=== PATIENT | female | born 1970 | race Two or more races ===

== ENCOUNTER 2020-09-20 06:32 | Day surgery (SDC) | payer OTHER | END 2020-09-20 19:30 | disposition home or self-care (01) | LOC: CIR.AMB 06:32 | PROVIDERS: ATTEND Surgery | DX: D05.11 Intraductal carcinoma in situ of right breast (principal); C77.3 Secondary and unspecified malignant neoplasm of axilla and upper limb lymph nodes; Z90.12 Acquired absence of left breast and nipple; Z20.822 Contact with and (suspected) exposure to COVID-19 | CPT/HCPCS: 19357; C1789; 19328; 19307; 38525; 38792 ==

== ENCOUNTER 2022-10-09 05:46 | Day surgery (SDC) | payer OTHER | END 2022-10-09 14:25 | disposition home or self-care (01) | LOC: CIR.AMB 05:46 | PROVIDERS: ATTEND Plastic Surgery | DX: C50.911 Malignant neoplasm of unspecified site of right female breast (principal); T85.44XA Capsular contracture of breast implant, initial encounter; Z90.11 Acquired absence of right breast and nipple; Z20.822 Contact with and (suspected) exposure to COVID-19 ==

== ENCOUNTER 2023-06-04 05:10 | Day surgery (SDC) | payer OTHER ==
[2023-06-02 10:25] LABS: HEMATOCRIT 41.3 % (36.0-45.00); HEMOGLOBIN 13.9 g/dL (12.0-15.00); MEAN CELL VOLUME 87.6 fL (80.00-100.00); MEAN CORPUSCULAR HEMOGLOBIN 29.5 pg (27.00-32.0); MEAN CORPUSCULAR HGB CONC 33.6 g/dl (32.0-36.0); PLATELET COUNT 178 K/uL (150-450); RED BLOOD COUNT 4.72 M/uL (4.00-6.00); RED CELL DISTRIBUTION WIDTH 13.3 % (11.5-14.5)
[2023-06-02 10:26] LABS: URINE APPEARANCE Clear; URINE BILIRRUBIN Negative (NEGATIVE); URINE BLOOD Negative; URINE COLOR Yellow; URINE GLUCOSE Negative (NEGATIVE); URINE LEUKOCYTE Negative; URINE NITRATE Negative; URINE PROTEIN Negative (NEGATIVE); URINE UROBILINOGEN 0.2 E.U./dl
[2023-06-02 10:31] LABS: URINE EPITHELIAL CELLS 2.7 uL (0.0-38.8); URINE RBC 7.3 uL (0.0-20.8); URINE WBC 2.6 uL (0.0-23.2)
[2023-06-02 10:36] LABS: URINE BACTERIA 3.7 uL (0.0-1933)
[2023-06-02 10:46] LABS: PARTIAL THROMBOPLASTIN TIME 29.3 SECONDS (22.0-34.0); PROTHROMBIN TIME 10.5 SECONDS (9.0-11.5)
[2023-06-02 10:47] LABS: CALCIUM 9.4 mg/dL (8.5-10.1); CREATININE SERUM 0.6 mg/dL (0.55-1.02); GFR 104.98; POTASSIUM 3.99 mEq/L (3.5-5.1)
[2023-06-04] MEDS ORDERED: CLINDAMYCIN PHOSPHATE 150 MG/ML (900mg) ONE (06:03)
[2023-06-04] MEDS ORDERED: CEFAZOLIN SODIUM 1,000 MG VIAL ONE (07:21)
[2023-06-04] MEDS ORDERED: POVIDONE-IODINE SCRUB 118 ML BOTT TOP ONE ×2 (07:22→09:30)
[2023-06-04] MEDS ORDERED: POVIDONE-IODINE 118 ML BOTT TOP ONE ×2 (07:22→09:30)
[2023-06-04] MEDS ORDERED: BUPIVACAINE HCL/PF 0.5% 30ML ML ONE (07:23)
[2023-06-04] MEDS ORDERED: LIDOCAINE HCL/EPINEPHRINE 10MG/ML 1% 50ML IJ ONE (07:23)
[2023-06-04] MEDS ORDERED: VANCOMYCIN HCL 1,000 MG VIAL ONE (07:25)
[2023-06-04] MEDS ORDERED: EPINEPHRINE HCL/PF 1 MG/ML AMPUL ONE (08:45)
[2023-06-04] MEDS ORDERED: EPINEPHRINE HCL/PF 1 MG/ML AMPUL IJ ONE (09:15)
[2023-06-04] MEDS ORDERED: VANCOMYCIN HCL 500 MG VIAL IV ONE (09:15)
[2023-06-04] MEDS ORDERED: CEFAZOLIN SODIUM 1,000 MG VIAL IM ONE (09:15)
[2023-06-04] MEDS ORDERED: CLINDAMYCIN PHOSPHATE 150 MG/ML (900mg) IV SCH (09:30)
[2023-06-04] MEDS ORDERED: NITROGLYCERIN 1 INCH OINT..GM. TD ONE ×2 (09:47→10:00)
[2023-06-04] MEDS ORDERED: MORPHINE SULFATE 4 MG/ML VIAL IV PRN (10:45)
[2023-06-04] MEDS ORDERED: ONDANSETRON HCL 2 MG/ML VIAL IV PRN (10:45)
== END 2023-06-04 14:00 | disposition home or self-care (01) ==
LOC: CIR.AMB 05:10
PROVIDERS: ATTEND Plastic Surgery
DX: Z90.11 Acquired absence of right breast and nipple (principal); C50.411 Malignant neoplasm of upper-outer quadrant of right female breast; N64.81 Ptosis of breast; N64.89 Other specified disorders of breast